=== PATIENT | male | born 1990 | race Caucasian/White ===

== ENCOUNTER 2017-03-20 22:15 | Emergency (ER) | payer SELFPAY ==
--- NOTE | 2017-03-20 23:15 | RADIOLOGY REPORT (SQ) ---
EXAM DESCRIPTION: CHEST SINGLE VIEW COMPLETED DATE/TIME: 03/20/2017 11:04 pm REASON FOR STUDY: coughing COMPARISON: None. EXAM PARAMETERS: NUMBER OF VIEWS: One view. TECHNIQUE: Single frontal radiographic view of the chest acquired. RADIATION DOSE: NA LIMITATIONS: None. FINDINGS: LUNGS AND PLEURA: There is relative hyperlucency involving the left lung apex compared to the rest of the chest without discrete pleural line identified. There is some linear opacities withi n the left lung base likely representing subsegmental atelectasis or scarring. MEDIASTINUM AND HILAR STRUCTURES: No masses. Contour normal. HEART AND VASCULAR STRUCTURES: Heart normal in size. Normal vasculature. BONES: No acute findings. HARDWARE: None in the chest. OTHER: No other significant finding. IMPRESSION: RELATIVE HYPERLUCENCY LEFT LUNG APEX WITHOUT DISCRETE PLEURAL LINE. FINDINGS COULD REPR ESENT A MEDIAL PNEUMOTHORAX VERSUS UNDERLYING CONGENITAL CYSTIC LUNG DISEASE. CORRELATE WITH PATIENT 'S CLINICAL HISTORY AND PRIOR IMAGING IF AVAILABLE. CT IS AVAILABLE FOR FURTHER CHARACTERIZATION CLINICALLY INDICATED. TECHNICAL DOCUMENTATION: JOB ID: [id number]
[2017-03-21] MEDS ORDERED: DEXAMETHASONE 4 MG TABLET PO ONE (00:12)
--- NOTE | 2017-03-21 00:48 | ER Document Report ---
ED General - General Chief Complaint: Cough Stated Complaint: COUGHING UP BLOOD Time Seen by Provider: 03/20/17 22:40 Notes: Patient is a 27-year-old male without past medical history who presents with 3 days of sore throat, fever, and several hours of spitting up blood. Patient reports that approximately 3 hours ago he began to notice blood in his sputum and every time he would spit there would be blood in it. He is uncertain of what caused this to start. Nothing improves or worsens his symptoms. He was for the past 3 days he has had a dull, scratching, constant irritation to the his throat. No subjective fever without any recorded fevers at home. He has not had any vomiting, headache, neck pain or altered mental status. He has not seen a primary care doctor regarding today's concerns. TRAVEL OUTSIDE OF THE [place] IN LAST 30 DAYS: No - Related Data Allergies/Adverse Reactions: No Known Allergies Allergy (Verified 03/20/17 23:05) Home Medications: Current Home Medications No Home Medications 03/20/17 [History] Past Medical History - General Information source: Patient - Social History Smoking Status: Never Smoker Frequency of alcohol use: None Drug Abuse: None Lives with: Parents Family History: Reviewed & Not Pertinent Patient has suicidal ideation: No Patient has homicidal ideation: No Renal/ Medical History: Denies: Hx Peritoneal Dialysis Review of Systems - Review of Systems Notes: Constitutional: Negative for fever. HENT: Positive for sore throat. Eyes: Negative for visual changes. Cardiovascular: Negative for chest pain. Respiratory: Negative for shortness of breath. Gastrointestinal: Negative for abdominal pain, vomiting or diarrhea. Genitourinary: Negative for dysuria. Musculoskeletal: Negative for back pain. Skin: Negative for rash. Neurological: Negative for headaches, weakness or numbness. 10 point ROS negative except as marked above and in HPI. Physical Exam - Vital signs Vitals: Temp Pulse Resp BP Pulse Ox 98.2 F 106 H 18 147/90 H 97 03/20/17 22:18 03/20/17 22:18 03/20/17 22:18 03/20/17 22:18 03/20/17 22:18 Interpretation: Tachycardic Notes: PHYSICAL EXAMINATION: GENERAL: Well-appearing, well-nourished and in no acute distress. HEAD: Atraumatic, normocephalic. EYES: Pupils equal round and reactive to light, extraocular movements intact, sclera anicteric, conjunctiva are normal. ENT: nares patent, bilateral tonsillar hypertrophy with the uvula in the midline. There is a approximately 0.25 cm laceration to the inferior medial pole of the left tonsil. There is active bleeding from this area. NECK: Normal range of motion, bilateral anterior cervical lymphadenopathy as well as submandibular lymphadenopathy. No stridor. LUNGS: Breath sounds clear to auscultation bilaterally and equal. No wheezes rales or rhonchi. HEART: Regular rate and rhythm without murmurs ABDOMEN: Soft, nontender, normoactive bowel sounds. No guarding, no rebound. No masses appreciated. EXTREMITIES: Normal range of motion, no pitting or edema. No cyanosis. NEUROLOGICAL: No focal neurological deficits. Moves all extremities spontaneously and on command. PSYCH: Normal mood, normal affect. SKIN: Warm, Dry, normal turgor, no rashes or lesions noted. Course - Re-evaluation Re-evalutation: 03/21/17 00:43 Patient presents with concerns of spitting up blood. Initially this was registered as him having hemoptysis. Patient is not acting having hemoptysis he is rather having posterior pharyngeal bleeding from his left tonsil. There was 1/4 cm laceration to the most medial aspect of the left inferior tonsil. This was actively bleeding at time of my assessment. The area was suctioned and dried and then a small amount of silver nitrate was applied to the area for cauterization with successful termination of the bleeding. Patient does have tonsillar hypertrophy but the uvula remained in the midline. He is otherwise well in appearance. Strep is negative. Exam and history are not concerning for retropharyngeal abscess, peritonsillar abscess or Ernesto angina. Chest x- ray was obtained in triage due to his initial complaint of hemoptysis. An incidental finding the left apex of a possible cystic lesion versus medial pneumothorax is noted. This was discussed with the patient he states that he was told that he had this several years ago when he tried to apply for the [employer] and was denied due to this finding on chest x-ray during his screening examination. I will therefore will not obtain a CT scan or pursue this any further. At this time will discharge with return precautions and follow-up recommendations. Verbal discharge instructions given a the bedside and opportunity for questions given. Medication warnings reviewed. Patient is in agreement with this plan and has verbalized understanding of return precautions and the need for primary care follow-up in the next 24-72 hours. - Vital Signs Vital signs: Temp Pulse Resp BP Pulse Ox 97.9 F 97 20 131/80 H 96 03/21/17 00:57 03/21/17 00:57 03/21/17 00:57 03/21/17 00:57 03/21/17 00:57 Discharge - Discharge Clinical Impression: Tonsillar laceration, Tonsillar hypertrophy, Viral pharyngitis Condition: Good Disposition: HOME, SELF-CARE Additional Instructions: Your seen today for a small laceration on the back of your left tonsil which was closed. Please continue to monitor closely for any signs that the bleeding is recurring. Return if you continue to have bleeding from the area, worsening of your pain, difficulty breathing, difficulty swallowing, or any other symptoms that are worrisome to you.
[2017-03-21 00:58] VITALS: BP 131/80
== END 2017-03-21 00:57 | disposition home or self-care (01) ==
LOC: ER 22:15
DX: S11.81XA Laceration without foreign body of other specified part of neck, initial encounter (principal); X58.XXXA Exposure to other specified factors, initial encounter; J02.8 Acute pharyngitis due to other specified organisms; B97.89 Other viral agents as the cause of diseases classified elsewhere; J35.1 Hypertrophy of tonsils; R00.0 Tachycardia, unspecified; R59.0 Localized enlarged lymph nodes; R91.8 Other nonspecific abnormal finding of lung field
CPT/HCPCS: 71010; 87070; 87880; 99284